=== PATIENT | female | born 1965 | race Caucasian/White ===

== ENCOUNTER 2025-03-02 11:19 | Outpatient (AMB) | payer BC, SELFPAY ==
--- OUTSIDE RECORDS SUMMARY | 2024-10-26 04:00 | XMS_ITS ---
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 [address] [address] 10/26/2024 AMANUEL HERRERA Encounter for gynecological examination [...] Follow Up: 1 Year, Reason: Y early Bit Sharpener Operator Exam Provider Name:AMANUEL Arcos, 04/13/2025 10:30:00 AM, [address] [facility], [address], [place], [address], Progress Notes * ALIX DANGELODOB: [birth year] (59 yo F)Acc No.[id number]:10/26/2024 PROGRESS NOTES Patient: ALIX LEWIS Provider: Christina HERRERA MD :1965 A ge:59 Y S ex:Female Date:10/26/2024 Address:[address] [place], [place] [id number] Pcp:Luan Sargent MD Subjective: * Chief Complaints: * 1 . 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 She has been in state of good health since her last exam. She has the following concerns: none* She was last seen on 10/05/24 for a follow up visit after starting Paroxetine for hot flashes, night sweats, emotional changes. 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 She was feeling well on Paroxetine and [...] of years ago. * ROS: A nnual Bit Sharpener Operator Exam ROS: Bowel habit changes d enies. [...] Denies A nxiety. * Medical History: * Bit Sharpener Operator History: G ravida/ Para . S exual [...] no acute distress, well developed, well nourished, physical therapy coordinator present in room. HEAD: n ormocephalic, atraumatic. [...] * Follow Up: 1 Year (Reason: Yearly Bit Sharpener Operator Exam) * Images: Billing Information: * Visit Code: 06876 Preventive Care Est Pt. Age 40-64. 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 She has been in state of good health since her last exam. She has the following concerns: none* She was last seen on 10/05/24 for a follow up visit after starting Paroxetine for hot flashes, night sweats, emotional changes. 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 She was feeling well on Paroxetine and [...] General Examination GENERAL APPEARANCE: in no ac neo distress, well developed, well nourished, physical therapy coordinator present in room HEAD: normocephalic, atrau matic [...]
--- NOTE | 2025-03-02 11:24 | A.OFFPC_ITS ---
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 Required: No Allergies No Known Allergies Allergy (Verified 03/02/25 11:59) Medication List - Last Reviewed 03/02/25 by Janeth Ellis MA divalproex 250 mg PO DAILY divalproex ER 500 mg PO BEDTIME levothyroxine 125 mcg PO DAILY trazodone 50 mg PO BEDTIME Tobacco use date assessed: 03/02/25 Dental Screening Dental Screen Date: 03/02/25 Did you have a dental visit in the last 12 months?: Yes Did you have a dental problem in the last 6 months where you did not have access to dental care?: No Was dental information given to patient?: Patient has dentist HPI HPI Comments 2 History of Present Illness0 Details 59 y/o F with hypothyroid, prediabetes, OA of hip, diverticulitis, HARRIS, MDD, hepatic steaotisis, gallstones, CAD, Obesity, Hx of abnormal pap s/p cervical bx 2020 , hartmans procedure 10/2024 d/t perf diverticulitis, elective colostomy reversal 01/31/2025, breast reduction, L hand surgery Social: works for [employer] complete Tdap 2019 Mammo 11/2023 WNL - will cont to go to [facility] Pap ASCUS 09/2023 Colon DEXA ordered today to be done @ [facility] Specialists Gen Surg, [facility] Counselor/Prescriber 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 During todays TCM visit, the d/c summary was reviewed, along with the need for or follow-up on pending diagnostic tests and treatments, as necessary interaction with other health menagerie caretaker who will assume or reassume care of the beneficiary?s system-specific problems was done or is being worked on, education was provided to the beneficiary, family, guardian, and/or caregiver, referrals to establish or re-establish and arrange needed community resources we completed, assistance in scheduling required follow-up with community providers and services & finally updated medication list given to patient/caregiver History of Present Illness - The patient is a 59-year-old female pr esenting to [facility] and for a TCM visit Previous PCP: [facility], records rec'd and reviewed. Complications post colostomy reversal. - Recent elective colostomy reversal led to post-operative infection and fever. - Currently has an open surgical incisio n, receiving regular home nursing care. - Healing slower than expected; patient remains out of work to facilitate recovery. Will return 04/16/25 - Experienced extreme pain post-surgery; bowel movement issues managed successfully with stool softeners and Metamucil. - tingling lateral right thigh s/p surge ry - Hypothyroid on levothyoxine w/o sx - Mood disorder - dx w/ bipolar while in rehab for etoh October 2024. Mood stable on current meds. Looking for new counselor and prescriber. Review of Systems - General: Denies fever. - Gastrointestinal: Reports normal bowel movements post-surgery. - Genitourinary: Reports normal urinatio n. Physical Exam General: Well developed, well nourished, in no acute distress. Appears stated age. Head: Normocephalic, atraumatic. Eyes: Pupils are equal, round and reactive to light and accommodation. Conjunctivae are clear. Lungs: Clear to auscultation bilaterally. No rales, rhonchi or wheeze noted. Good air flow in all nicholas. Heart: Regular rate and rhythm. No murmurs, click, rubs or gallops are noted. Abdomen: Bowel sounds present in all quadrants. The abdomen is soft, nontender, with no masses or organomegaly noted. No hernias are noted. Several surgical incisions, 2 dressings clean and dry midline incision, not removed today. Musculoskeletal: Joints are nontender, without swelling, redness, or effusions. Pulses: Peripheral pulses are equal and palpable bilaterally. Extremities: No clubbing, cyanosis nor edema is noted. Psych: Mood and affect appropriate. Discussion Notes I discussed the post-operative complications with the patient, including her current status following the colostomy reversal surgery. We reviewed the care provided by visiting nurses and the importance of wound care management. The continuation of stool softeners and dietary fiber supplements was recommended to maintain bowel movement regularity. We discussed her ongoing recovery from alcohol use disorder; maintaining sobriety is crucial for her overall health. The potential for nerve involvement causing tingling sensation was discussed but did not warrant immediate intervention. I also advised her to use the patient portal for efficient communication with our office and facilitated a referral for psychiatric care coordination to address her mental health needs. Follow-up labs were planned to update her thyroid status as per her routine care protocol. Assessment and Plan 1. Colostomy reversal complications - Ensure regular wound care and defer wo rk return. FU with [facility] Gen Surg. 2. Hypothyroidism - Follow up with thyroid labs evaluation . - cont levothyroxine 3. Bipolar disorder - Plan psychiatric care assistance. - cont divalproex ER 4. Alcohol Use Disorder - Maintain sobriety support. Refer to [facility] for counseling and med prescriber 5. 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 Mammo and Dexa ordered today to be done @ [facility] RTO 3 mo for CPE with labs 1 week before, sooner prn Patient Instructions - Keep your wounds clean and change dres sings as directed by visiting nurses. - Continue using stool softeners and Met amucil to help bowel movements. - Rest and avoid returning to work until April 16. - Use the patient portal for direct comm unication with our office. - Expect a call from our office's naviga tor for mental health support services. - Stay on your prescribed medications an d watch for any changes in symptoms. Consent Patient was informed and verbally consented to the use of an ambient scribe for clinic note documentation during this visit. Total time spent caring for the patient today was 60 minutes. This includes time spent before the visit reviewing the chart, time spent during the visit, and time spent after the visit on documentation, reviewing laboratory results, diagnostic imaging, medications, performing a medically necessary evaluation, counseling on diagnoses, care coordination, ordering appropriate tests, ordering appropriate medications, review of tests performed by other providers, reporting test results with the patient, communication with other healthcare providers. [facility] Medical History (Updated 03/02/25 @ 12:44 by Vilma Lubin, [facility]) Recovering alcoholic Thyroid disorder Surgical History (Updated 03/02/25 @ 11:53 by Janeth Ellis MA) History of colostomy reversal (~01/2025) History of partial surgical removal of colon (~10/2024) Hx of breast reduction, elective (~2001) Family History (Updated 03/02/25 @ 11:54 by Janeth Ellis MA) Father HTN (hypertension) Substance abuse Mother Diabetes Social History (Updated 03/02/25 @ 11:55 by Janeth Ellis MA) Household Members: Spouse Both parents involved: No Caregiver staying overnight: No Housing: House Are you a primary hearing care practitioner to a significant other at home: No Do you presently have visiting nurse or other home services: No 75 years or older and lives alone: No Alcohol intake: never Patient Tobacco Use Status: Never used Tobacco e-Cigarette/Vaping Use: Never Used Second Hand Smoke Exposure: No Current occupational status: employed 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 1. Little interest or pleasure in doing things: not at all 2. Feeling down, depressed, or hopeless: not at all 3. Trouble falling or staying asleep, or sleeping too much: not at all 4. Feeling tired or having little energy: not at all 5. Poor appetite or overeating: not at all 6. Feeling bad about yourself - or that you are a failure or have let yourself or your family down: not at all 7. Trouble concentrating on things, such as reading the newspaper or watching television: not at all 8. Moving or speaking so slowly that other people could have noticed. Or the opposite - being so fidgety or restless that you have been moving around a lot more than usual: not at all 9. Thoughts that you would be better off or of hurting yourself in some way: not at all Total score: 0 Depression Screening Interpretation: Negative Depression Screening Done: Yes 14964 - PHQ-9 Billing: Yes Source: Developed by Drs. Mart Valdes, Betzaida B.Missael Arellano and colleagues, with an educational mirela from [employer]. Thrive Questionnaire Date Thrive assessed: 03/02/25 I am a: Patient What is your living situation today?: I have a steady place to live Within the past 12 months, did the food you bought not last and you didn't have the money to get more?: Never true Within the past 12 months, did you worry whether your food would run out before you got money to buy more?: Never true Do you have trouble paying for medicines?: No Do you have trouble getting transportation to medical appointments?: No Do you have trouble paying your heating and electricity bill?: No Do you have trouble taking care of your child, family member or friend?: No Do you have trouble with day-to-day activities such as bathing, preparing meals, shopping, managing finances, etc.?: No Are you currently unemployed and looking for a job?: No Are you interested in more education?: No Please select the resources that you would like help with: None Currently or been in a relationship where the following occur: No concerns reported THRIVE Score: 0 AUDIT C Alcohol Use Questionnaire (AUDIT-C) 1. How often do you have a drink containing alcohol?: Never 3. How often do you have six or more drinks on one occasion?: Never Total Score: 0 Score Reviewed/Action Taken: Yes HARRIS-7 AMB Questionnaire HARRIS-7 Date HARRIS - 7 assessed: 03/02/25 Feeling nervous, anxious, or on edge: 0 = Not at all Not being able to stop or control worryin = Not at all Worrying too much about different things: 0 = Not at all Trouble relaxin = Not at all Being so restless that it is hard to sit still: 0 = Not at all Becoming easily annoyed or irritable: 0 = Not at all Feeling afraid as if something awful might happen: 0 = Not at all Total HARRIS-7 score (0-4 normal; 5-9 mild; 10-14 moderate; 15-21 severe): 0 Source: Developed by Drs. Mart Valdes, Missael Gonzales and colleagues, with an educational mirela from [employer]. HARRIS-7 Assessment Billing HARRIS-7 Assessment Tool: HARRIS-7 Assessment 18226 Physical exam (Primary Care) Vital Signs: Last Vital Signs Temp 97.1 F 03/02/25 11:32 Pulse 77 03/02/25 11:32 Resp 12 03/02/25 11:32 BP 122/68 03/02/25 11:32 Pulse Ox 99 03/02/25 11:32 Oxygen Delivery Method Room Air 03/02/25 11:32 BMI result Body Mass Index 35.0 BMI Assessment/Plan discussion: High BMI High, discussed plan: lifestyle Tobacco/Smoking Status: Tobacco use Status Tobacco use date assessed 03/02/25 03/02/25 11:29 Patient Tobacco Use Status Never used Tobacco 03/02/25 11:55 e-Cigarette/Vaping Use Never Used 03/02/25 11:55 PHQ-9: PHQ-9 Score PHQ-9: Total score 0 03/02/25 11:29 Depression Screening Interpretation: Negative Thrive Assessment: Date of Thrive Assessment Date Thrive assessed 03/02/25 03/02/25 11:29 Currently or been in a relationship where the following occur: No concerns reported Coding Level of Care Code New Pt Level 5 (23099) Complex EM visit Add On G2211 Diagnoses Encounter to establish care Z76.89 Hospital discharge follow-up Z09 Obesity (BMI 30-39.9) E66.9 Alcohol abuse F10.10 Bipolar disorder in full remission, most recent episode unspecified type F31.70 Active/Remission status: in full remission Most recent bipolar episode type: unspecified type Acquired hypothyroidism E03.9 Hypothyroidism type: acquired ROY (nonalcoholic steatohepatitis) K75.81 ASCUS of cervix with negative high risk HPV R87.610 Menopause Z78.0 Diverticulitis of colon with perforation K57.20 Additional Codes HARRIS-7 Assessment Billing - HARRIS-7 Assessment Tool: HARRIS-7 Assessment 27222 ([id number]) PHQ-9 - 57555 - PHQ-9 Billing: Yes ([id number]) Assessment & Plan Assessment & Plan (1) Encounter to establish care: Code(s): Z76.89 - Persons encountering health services in other specified circumstances (2) Hospital discharge follow-up: Code(s): Z09 - Encounter for follow-up examination after completed treatment for conditions other than malignant neoplasm (3) Obesity (BMI 30-39.9): Code(s): E66.9 - Obesity, unspecified Category: Medical (4) Alcohol abuse: Comment: in early remission, 10/2024 hx of Section 12 Code(s): F10.10 - Alcohol abuse, uncomplicated Category: Social Hx (5) Bipolar disorder: Code(s): F31.9 - Bipolar disorder, unspecified Category: Medical Qualifiers: Active/Remission status: in full remission Most recent bipolar episode type: unspecified type Qualified Code(s): F31.70 - Bipolar disorder, currently in remission, most recent episode unspecified (6) Hypothyroid: Code(s): E03.9 - Hypothyroidism, unspecified Category: Medical Qualifiers: Hypothyroidism type: acquired Qualified Code(s): E03.9 - Hypothyroidism, unspecified (7) ROY (nonalcoholic steatohepatitis): Code(s): K75.81 - Nonalcoholic steatohepatitis (ROY) Category: Medical (8) ASCUS of cervix with negative high risk HPV: Onset Date: ~09/2023 Comment: managed by [facility] Code(s): R87.610 - Atypical squamous cells of undetermined significance on cytologic smear of cervix (ASC-US) Category: Medical (9) Menopause: Code(s): Z78.0 - Asymptomatic menopausal state Category: Medical (10) Diverticulitis of colon with perforation: Code(s): K57.20 - Diverticulitis of large intestine with perforation and abscess without bleeding Category: Medical Plan . Orders: Orders 2 MM tomosynthesis screening BI Today Z12.31 - Encounter for screening mammogram for malignant neoplasm of breast, Z78.0 - Asymptomatic menopausal state Complete Blood Count no Diff Today E03.9 - Hypothyroidism, unspecified, K75.81 - Nonalcoholic steatohepatitis (ROY), Z00.00 - Encounter for general adult medical examination without abnormal findings IRON PROFILE Today E03.9 - Hypothyroidism, unspecified, K75.81 - Nonalcoholic steatohepatitis (ROY), Z00.00 - Encounter for general adult medical examination without abnormal findings Lipid Panel Today E03.9 - Hypothyroidism, unspecified, K75.81 - Nonalcoholic steatohepatitis (ROY), Z00.00 - Encounter for general adult medical examination without abnormal findings TSH reflex Free T4 Today E03.9 - Hypothyroidism, unspecified, K75.81 - Nonalcoholic steatohepatitis (ROY), Z00.00 - Encounter for general adult medical examination without abnormal findings Vitamin B12 and Folate Today E03.9 - Hypothyroidism, unspecified, K75.81 - Nonalcoholic steatohepatitis (ROY), Z00.00 - Encounter for general adult medical examination without abnormal findings Vitamin D 25-OH Total Today E03.9 - Hypothyroidism, unspecified, K75.81 - Nonalcoholic steatohepatitis (ROY), Z00.00 - Encounter for general adult medical examination without abnormal findings XR DEXA axial skeleton Today Z13.820 - Encounter for screening for osteoporosis, Z78.0 - Asymptomatic menopausal state Comprehensive Met. Panel Today E03.9 - Hypothyroidism, unspecified, K75.81 - Nonalcoholic steatohepatitis (ROY), Z00.00 - Encounter for general adult medical examination without abnormal findings Ferritin Today E03.9 - Hypothyroidism, unspecified, K75.81 - Nonalcoholic steatohepatitis (ROY), Z00.00 - Encounter for general adult medical examination without abnormal findings Hemoglobin A1c Today E03.9 - Hypothyroidism, unspecified, K75.81 - Nonalcoholic steatohepatitis (ROY), Z00.00 - Encounter for general adult medical examination without abnormal findings Microalbumin, Random (w Creat) Today E03.9 - Hypothyroidism, unspecified, K75.81 - Nonalcoholic steatohepatitis (ROY), Z00.00 - Encounter for general adult medical examination without abnormal findings Referrals 2 Nurse Navigator Referral F10.10 - Alcohol abuse, uncomplicated, F31.9 - Bipolar disorder, unspecified Patient Instructions: Walk-In Care (Urgent Care): We Make it Easy Walk-in for urgent medical issues such as: ? Seasonal Allergies ? Insect Bites ? Cough ? Diarrhea ? Acute Asthma Attacks ? Back, Knee or Joint Pain ? Ear Infection ? Fever without a Rash ? Headaches ? Nausea ? Damon Eye, Rash or Skin Irritation ? Sore Throat ? Sports Physicals ? Vomiting Most insurances are accepted. Patients do not need to be part of the [facility] to seek care at the walk-in clinic. Locations [facility] [address], [place] [address] ? [phone] [facility] in [place] provides services to ages 18 and over. Open Wednesday-Wednesday: 8 a.m. to 5 p.m. and Wednesday: 9 a.m. to 3 p.m.* *Hours may vary due to staffing availability. To confirm Walk-In Care hours in [place], please call [phone]. [address] [place] [address] ? [phone] [facility] Walk-In Care in [place] provides services to ages 12 and over. Open Wednesday-Wednesday: 8 a.m. to 5 p.m. Hours may vary due to staffing availability. To confirm Walk-In Care hours in [place], please call [phone]. LABORATORY SERVICES: [facility] Lab ? Primary Location [address] [place] [address] Wednesday through Wednesday 6:00 AM ? 5:00 PM Wednesday 7:00 AM ? 11:00 AM* [phone] The [facility] Lab is centrally located near the front entrance of the [facility] for easy outpatient access. Convenient parking is provided for outpatients. *Hours may vary due to staffing availability. To confirm Laboratory hours for any location, please call [phone]. Offsite Location For your convenience, we offer offsite laboratory draw stations at the following locations: [address] [place] [address] ? [address], [address] Wednesday through Wednesday 7:30 AM ? 1:00 PM* [phone] *Hours may vary due to staffing availability. To confirm Laboratory hours for any location, please call [phone]. [place] ? [address] Wednesday through Wednesday 6:00 AM ? 3:30 PM* Wednesday 6:30 AM ? 3 PM* [phone] *Hours may vary due to staffing availability. To confirm Laboratory hours for any location, please call [phone] [place] [address] Wednesday through Wednesday 7:30 AM ? 4:00 PM* [phone] *Hours may vary due to staffing availability. To confirm Laboratory hours for any location, please call [phone] [place] [address] Wednesday through 9:00 AM ? 4:00 PM* *Hours may vary due to staffing availability. To confirm Laboratory hours for any location, please call [phone]. Appointments are not necessary. Walk-ins are welcome. Like all the departments throughout the [facility], our Lab undergoes frequent reviews to ensure the quality and accuracy of test results, and our staff takes special pride in its status as a nationally accredited facility. Patient Portal: ONE PATIENT. ONE RECORD. BETTER CARE. [facility] has a fully integrated, cutting- edge mobile electronic health information system that has revolutionized the way we care for our patients and manage our organization. This system improves communication and coordination enabling us to provide safe, higher-quality care, and an overall positive experience for staff and patients. Our first priority, as always, is to deliver the highest quality care possible. The system is running in the background supporting that priority. This portal is for all [facility] and [facility] services and practices. If you are experiencing any technical difficulties with enrolling or logging into the Patient Portal please complete the [facility] Patient Portal Technical Support Form. [facility] now offers a new secure on-line interactive tool for patients to review their health information ? ?Patient Portal. This interactive web portal will enable patients and their families to take an active role in their care by providing easy, secure access to their health information via the internet. The Patient Portal provides patients with instant access to their health information, including laboratory results, medications, allergies, demographic information, visit history, and more. In addition to managing their own care, parents and health care proxies with authorized consent will appreciate the ability to access the records of those individuals for whom they provide care. Please note: if you wish to gain access (Proxy) to another patient?s portal, you will be required to come to the Medical Records Department in person at [facility]. Both the patient giving proxy access and the proxy will need to provide photo identification and complete the appropriate authorization. The Patient Portal also allows track their appointments online. The [facility] Patient Portal also saves patients time by allowing them to submit updates to their demographic and contact information prior to their visits. Portal email notifications will also alert patients to any new activity on their portal, such as test results and new appointments. In order to initially enroll in the [facility] Patient Portal, you will need to enter some required information including the following: * your [facility] Medical Record number * your personal home email address * name * date of Please note: In order to enroll in the [facility] Patient Portal, we need to have your email address on file in your electronic medical record. ?The email address needs to be specific for one person (yourself) in order for your Portal enrollment to be successful. ?You can update your email address in person with our Registration staff when you are registering for a hospital visit. ?Otherwise, you will need to come to the Health Information Management (Medical Records) Department at [facility]. ?We are open from Wednesday ? Wednesday from 7:30 a.m. ? 4:30 p.m. ?You will be required to present a photo id. Once you have successfully enrolled in the Patient Portal, you will receive a one-time user id and password for the Portal, sent to your email address. ?This will allow you to log into the Patient Portal within 99 hrs and reset your own logon id and password, and define personal security questions. ?Once your permanent login and password have been set, you can log into the [facility] Patient Portal at any time via the blue button above or from the Portal Logon button on any page of the [facility] website. [facility] and [facility] encourage all of our patients to enroll in Patient Portal as it presents a valuable opportunity for patients and their families to actively participate in their care and stay healthy Welcome to [facility]. ?We look forward to working with you.
[2025-03-02 11:32] VITALS: BP 122/68; PULSE 77; RESP 12; TEMP 36.2; O2SAT 99; BMI 35.0
--- OUTSIDE RECORDS SUMMARY | 2025-03-02 11:52 | XMS_ITS | Referral Summary ---
Author Organization [facility] Address [address] [place] [address] Care Team Providers Care Anode Machine Operator Name Role Phone Luan Sargent Jacklyn Primary Care Provider [phone] Encounters Date Type Department Care Team Description 11/28/2024 2:54 PM EDT - 12/08/2024 1:34 PM EDT Hospital Encounter [facility] [address] [place] [address] Matthew Kwon MD Discharge Disposition: Home or Self Care () from Last 3 Months Allergies No known active allergies Medications levothyroxine (SYNTHROID, LEVOTHROID) 125 mcg tablet Take 1 tablet (125 mcg total) by mouth daily. 30 tablet 5 Active divalproex ER (DEPAKOTE ER) 500 mg tablet Take 1 tablet (500 mg total) by mouth every night. 30 tablet [address] (DEPAKOTE) 250 mg EC tablet Take 1 tablet (250 mg total) by mouth once a day. 30 tablet 5 Active hydrOXYzine HCL (ATARAX) 25 mg tablet Take 1 tablet (25 mg total) by mouth 2 times a day as needed for anxiety (or sleep). 60 tablet 5 Active LORazepam (ATIVAN) 1 mg tablet Take 1 tablet (1 mg total) by mouth 3 times a day. Do not stop abruptly; consult outpatient provider for taper instructions before stopping 42 tablet 1 5 Active traZODone (DESYREL) 50 mg tablet Take 1 tablet (50 mg total) by mouth nightly. 30 tablet 5 Active Active Problems Problem Noted Date Diagnosed Date Thyroid dysfunction 11/29/2024 Assessment & Plan (11/30/2024 1:37 PM EDT): Known history of hypothyroid which has been treated with Levothyroxine 200mcg daily. While at [facility], endocrinology was consulted and the Levothyroxine was held for 3 days due to concern for iatrogenic hyperthyroid. After the 3 days, they recommended restarting Levothyroxine at 150mg daily with monitoring of labs in 4-6 weeks. Repeat TSH remained low; medical diagnostic radiographer recommended further decrease of Levothyroxine to 125mcg with a repeat TSH in 3 weeks. -Stop Levothyroxine 150mcg daily -Start Levothyroxine 125mcg daily -Repeat TSH in 3 weeks Diverticulitis 11/29/2024 Assessment & Plan (12/01/2024 10:08 AM EDT): Known history of diverticulitis; S/P suni procedure on 11/15/24. Ginny intact with instructions to have removed around 12/07/24. Some redness around the incision site. Medical consult ordered on admission. Ostomy teaching was done at [facility]; patient reports ability to change the bag independently but given the extent of manic symptoms may need assistance. -Medical Consult to evaluate incision site and ostomy -11/29/24 Doxycycline 100mg BID x7 days restarted -11/29/24 Flagyl 500mg Q8hr x7 days restarted -Monitor incision site 3 times a day by nursing staff -Staple Removal scheduled on 12/07 @ 1:20pm with Dr. Morejon ([phone]); -After pictures were sent to the surgeon on 11/30 the new instructions were to remove ginny on 12/01 and replace with steri strips (medical diagnostic radiographer will remove) -Check CBC, CMP, CRP, ESR Bipolar disorder 11/28/2024 Assessment & Plan (12/04/2024 1:08 PM EDT): Psychiatric Assessment/Plan Patient presents with manic symptoms as evidence by decreased need for sleep, increased energy, tangential/racing thought process, pressured speech, increased purposeless non-goal directed activity, labile mood, and mild paranoia/distrust. Patient also expressed suicidal ideation with multiple plans. On admission, she reports that she does not want to and cites multiple protective factors. However, due to the severity of her symptoms remains at risk for unintentional harm to herself or others. Regarding medications, will stop Paxil due to jerry. Start Zyprexa 10mg HS, Ativan 1mg HS, and Trazodone 50mg HS with the goal of stabilizing sleep and jerry. Plan -Admit to the CDU on a conditional voluntary status; signed 3 day notice which expires on 12/01/24 -Monitor safety on 1:1; reduced to Q5 on 11/30 -Zyprexa 2.5mg BID at 0900 & 1300; increased to 5mg BID on 12/01 -Zyprexa 10mg HS; increased to 15mg HS on 12/04 -Start Depakote ER 250mg AM and 500mg HS on 12/04 -Trazodone 50mg HS -Ativan 1mg HS; changed to 3 times a day on 12/01 -Benadryl 50mg HS added 12/01 -Encourage engagement in milieu activities -Offer prns for sleep, anxiety, pain, fever, & GI distress as appropriate -Disposition planning per social work recommendations Resolved Problems Problem Noted Date Diagnosed Date Resolved Date Mouth sores 11/29/2024 12/08/2024 Assessment & Plan (11/30/2024 8:57 AM EDT): Subjective report of multiple sores in her mouth which is interfering with her ability to eat. Patient was given a 1x dose of lidocaine viscous before lunch and will be seen by the medical diagnostic radiographer later today. -11/29 started on Triamcinolone dental paste 0.1% 3 times a day x 5 days -Daily swish with antibacterial mouth wash Social History Tobacco Use Types Packs/Day Years Used Date Smoking Tobacco: Former Cigarettes Smokeless Tobacco: Never Tobacco Cessation:Counseling Given: No Comments:Quit at age 42 Alcohol Use Standard Drinks/Week Comments Not Currently 8 (1 standard drink = 0.6 oz pure alcohol) Patient self endorses being an alcoholic. Reports excessive drinking over the past 3 years. Last drink was mid October 2024. Comments No Sex and Gender Information Value Date Recorded Sex Assigned at Female 11/29/2024 8:47 AM EDT Legal Sex Female 4:00 AM EDT Gender Identity Not on file Sexual Orientation Not on file Last Filed Vital Signs Vital Sign Reading Time Taken Comments Blood Pressure 126/86 12/08/2024 8:18 AM EDT Pulse 92 12/08/2024 8:18 AM EDT Temperature 36.8 C (98.3 F) 12/08/2024 8:18 AM EDT Respiratory Rate 16 12/08/2024 8:18 AM EDT Oxygen Saturation 97% 12/08/2024 8:18 AM EDT Inhaled Oxygen Concentration - - Weight 86.2 kg (190 lb) 11/28/2024 3:00 PM EDT Height 177 cm (5' 9.69 ) 11/28/2024 3:00 PM EDT Body Mass Index 27.51 11/28/2024 3:00 PM EDT Plan of Treatment Not on file Procedures * Due to [employer] law, this organization might not be sharing negative HIV tests. Procedure Name Priority Date/Time Associated Diagnosis Comments POCT GLUCOSE Routine 12/08/2024 7:45 AM EDT BASIC METABOLIC PANEL Routine 12/08/2024 6:45 AM EDT VALPROIC ACID LEVEL, TOTAL Routine 12/08/2024 6:45 AM EDT TSH Routine 12/08/2024 6:45 AM EDT POCT GLUCOSE Routine 12/07/2024 3:55 PM EDT POCT GLUCOSE Routine 12/07/2024 12:32 PM EDT from Last 3 Months Results * Due to [employer] law, this organization might not be sharing negative HIV tests. * (ABNORMAL) POCT Glucose, interfaced (12/08/2024 7:45 AM EDT) Only the most recent of3 resultswithin the time period is included. Glucose, POCT 127(H) 70 - 99 mg/dL 12/08/2024 7:45 AM EDT [facility] Comment: The tearoom host has not determined the efficacy of this test in Critically ill patients. [facility] defines Critically ill patients for the purpose of blood glucose monitoring (BGM) by glucometer, as patients meeting one or more of the following criteria: Hypotension- non-ICU patients (systolic blood pressure Less than 90 mmHg) due to shock Hypotension -ICU patients (Mean Arterial Pressure (MAP) <60 mmHg or systolic blood pressure < 90 mmHg due to shock Patients receiving Vasopressors (phenylephrine, vasopressin or norepinephrine) Anasarca In all locations, BGM test results should not be relied upon in the above situations, unless these results confirmed with lab-based glucose values. Blood 12/08/2024 7:45 AM EDT 12/08/2024 7:45 AM EDT us Matthew Kwon MD LAB POCT ORDERABLES - DEVICE F inal Result Performing Organization Address City/[facility]/ZIP Co de Phone Number [facility] [address] [place] [address], [place] [phone] * (ABNORMAL) TSH (12/08/2024 6:45 AM EDT) TSH 0.026(L) 0.270 - 4.200 uIU/mL 12/08/2024 7:34 AM EDT [facility] Comment: Females: 1st trimester 0.150-4.000 IU/mL 2nd trimester 0.310-4.170 IU/mL 3rd trimester 0.380-4.150 IU/mL Blood Structure of peripheral vein / Unknown Venipuncture / Unknown 12/08/2024 6:45 AM EDT 12/08/2024 6:48 AM EDT us Tabitha Lundy NP LAB BLOOD ORDERABLES Final Re sult Performing Organization Address [facility]/ZIP Co de Phone Number [facility] [address] [place] [address], [place] [phone] * (ABNORMAL) Valproic Acid Level, Total (12/08/2024 6:45 AM EDT) [facility] Valproic Acid, Total 35(L) 50 - 100 ug/mL 12/08/2024 10:42 AM EDT [facility] Blood Structure of peripheral vein / Unknown Venipuncture / Unknown 12/08/2024 6:45 AM EDT 12/08/2024 6:48 AM EDT us Tabitha Lundy NP LAB BLOOD ORDERABLES Final Re sult [facility] [address] [facility] [address] [place] [address], [place] [phone] * (ABNORMAL) Basic metabolic panel (12/08/2024 6:45 AM EDT) [facility] NA 138 136 - 145 mmol/L 12/08/2024 7:17 AM EDT [facility] K 4.2 3.5 - 5.1 mmol/L 12/08/2024 7:17 AM EDT [facility] Cl 100 98 - 109 mmol/L 12/08/2024 7:17 AM EDT [facility] CO2 28 22 - 32 mmol/L 12/08/2024 7:17 AM EDT [facility] BUN 8 6 - 20 mg/dL 12/08/2024 7:17 AM EDT [facility] Creatinine 0.41(L) 0.50 - 1.12 mg/dL 12/08/2024 7:17 AM EDT [facility] Glucose 114(H) 60 - 99 mg/dL 12/08/2024 7:17 AM EDT [facility] Calcium 8.8 8.4 - 10.4 mg/dL 12/08/2024 7:17 AM EDT [facility] Anion Gap 14 >=0 12/08/2024 7:17 AM EDT [facility] eGFR >90 >=60 mL/min/1. 73m2 12/08/2024 7:17 AM EDT [facility] Comment:The estimated glomer ular filtration rate (eGFR) is calculated using a new formula developed by the NKF-ASN task force to eliminate race-based correction factors. The new formula uses serum/plasma creatinine, age, and gender to determine eGFR. A value below 60mls/min might indicate kidney disease and will be flagged. For additional information, see Whitaker et al, Am J Kidney Dis. 2021;79(2):268- 288, A Unifying Approach for GFR estimation: Recommendations of the NKF-ASN Task Force on Reassessing the Inclusion of Race in Diagnosing Kidney Disease . Blood Structure of peripheral vein / Unknown Venipuncture / Unknown 12/08/2024 6:45 AM EDT 12/08/2024 6:48 AM EDT us Tabitha Lundy NP LAB BLOOD ORDERABLES Final Re sult [facility] [address] [place] [address], from Last 3 Months Insurance [facility] HMO/POS Advance Directives * Full Code (Latest Code Status on File) Date Activated Date Inactivated Comments 11/28/2024 3:32 PM 12/08/2024 3:51 PM Care Teams Anode Machine Operator Relationship Specialty Start Date End Date Luan Sargent [address] [place] [address] PCP - General Internal Medicine 12/01/24
== END 2025-03-02 12:28 | disposition home or self-care (01) ==
PROVIDERS: PCP Nurse Practitioner Family; Visit Provider Nurse Practitioner Family
DX: E03.9 Hypothyroidism, unspecified (principal); Z09 Encounter for follow-up examination after completed treatment for conditions other than malignant neoplasm; E66.9 Obesity, unspecified; Z68.35 Body mass index [BMI] 35.0-35.9, adult; F10.10 Alcohol abuse, uncomplicated; F31.70 Bipolar disorder, currently in remission, most recent episode unspecified; K75.81 Nonalcoholic steatohepatitis (NASH); R87.610 Atypical squamous cells of undetermined significance on cytologic smear of cervix (ASC-US); Z78.0 Asymptomatic menopausal state; K57.20 Diverticulitis of large intestine with perforation and abscess without bleeding

== ENCOUNTER → 2025-03-02 11:19 | Outpatient (BNVA) | payer BC, SELFPAY | PROVIDERS: PCP Nurse Practitioner Family; Visit Provider Nurse Practitioner Family | DX: M16.11 Unilateral primary osteoarthritis, right hip (principal); F41.1 Generalized anxiety disorder; I25.10 Atherosclerotic heart disease of native coronary artery without angina pectoris; E66.9 Obesity, unspecified; E03.9 Hypothyroidism, unspecified; F31.9 Bipolar disorder, unspecified; F10.10 Alcohol abuse, uncomplicated; F31.70 Bipolar disorder, currently in remission, most recent episode unspecified; K75.81 Nonalcoholic steatohepatitis (NASH); R87.610 Atypical squamous cells of undetermined significance on cytologic smear of cervix (ASC-US); Z09 Encounter for follow-up examination after completed treatment for conditions other than malignant neoplasm; Z78.0 Asymptomatic menopausal state; Z76.89 Persons encountering health services in other specified circumstances; Z87.19 Personal history of other diseases of the digestive system; Z68.35 Body mass index [BMI] 35.0-35.9, adult | CPT/HCPCS: 96127 ==

== ENCOUNTER 2025-08-02 14:46 | Outpatient (AMB) | payer BC, SELFPAY ==
--- OUTSIDE RECORDS SUMMARY | 2024-10-26 03:00 | XMS_ITS ---
Author Organization [facility] Address [address] [address] Care Team Providers Care Water Control Supervisor Name Role Phone SHILPI BRIAN N.P. 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 Physical Medications Medication SIG (Take, Route, Frequency, Duration) Notes Start Date End Date Status PARoxetine HCl 20 MG 1 tablet in the mor izzy Orally Once a day; Duration: 90 days 08/03/2024 Active Levothyroxine Sodium 175 MCG 1 tablet in the morning on an empty stomach Orally Once a day Unknown Encounters Encounter Location Date Provider Diagnosis [facility] [employer] [address] [address] 10/26/2024 AMANUEL HERRERA Encounter for gynecological examination (general) (routine) without abnormal findings Z01.419 ; Encounter for screening mammogram for malignant neoplasm of breast Z12.31 ; Encounter for screening for infections with a predominantly sexual mode of transmission Z11.3 and Menopausal and female climacteric states N95.1 Assessments Encounter Date Diagnosis (ICD Code) Assessment Notes Treatment Notes Treatment Clinical Notes Section Notes 10/26/2024 Encounter for gynecological examination (general) (routine) without abnormal findings (ICD-10 - Z01.419) During the visit, the following areas of concern were addressed: Discussed cervical cancer screening with either cytology alone every 3 years or high risk HPV co-testing every 5 years as per ASCCP guidelines. Advised continued annual pelvic exams. Patient encouraged to increase her level of exercise. SBE technique encouraged/tau ght. Patient reminded when annual mammogram is due. Patient encouraged to keep colon screening up to date. 10/26/2024 Encounter for screening mammogram for malignant neoplasm of breast (ICD-10 - Z12.31) 10/26/2024 Encounter for screening for infections with a predominantly sexual mode of transmission (ICD-10 - Z11.3) 10/26/2024 Menopausal and female climacteric states (ICD-10 - N95.1) Plan Of Treatment Medication Medication Name Sig Start Date Stop Date Notes PARoxetine HCl 20 MG 1 tablet in the mor izzy Orally Once a day; Duration: 90 days 08/03/2024 Treatment Notes Assessment Notes Encounter for gynecological examination (general) (routine) without abnormal findings During the visit, the following areas of concern were addressed: Discussed cervical cancer screening with either cytology alone every 3 years or high risk HPV co-testing every 5 years as per ASCCP guidelines. Advised continued annual pelvic exams. Patient encouraged to increase her level of exercise. SBE technique encouraged/taught. Patient reminded when annual mammogram is due. Patient encouraged to keep colon screening up to date. Pending Test Test Name Order Date MM Digital Screening Mammogram 3D 2024 Next Appt Details Follow Up: 1 Year, Reason: Y early Manufacturing Engineer Assembly Exam Provider Name:AMANUEL Arcos, 06/20/2026 08:40:00 AM, [address], [address], [place], [address], Progress Notes * ALIX DANGELODOB: [birth year] (60 yo F)Acc No.[id number]:10/26/2024 PROGRESS NOTES Patient: ALIX LEWIS Provider: Christina HERRERA MD :1965 A ge:59 Y S ex:Female Date:10/26/2024 Address:[address] [place], [place] [id number] Pcp:SHILPI BRIAN N.P. Subjective: * Chief Complaints: * 1 . 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 She has been in state of good health since her last exam. She has the following concerns: none* She was last seen on 10/05/24 for a follow up visit after starting Paroxetine for hot flashes, night sweats, emotional changes. 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 She was feeling well on Paroxetine and we continued the same dose. She has received the Moderna Covid-19 vaccine. Relationship status: * for 34 years. She is sexually active. Sexual partner(s): male. She does not wish to have STI testing. She does *not report vaginal dryness. She does have hot flashes/night sweats - tolerable. The patient has had an abnormal pap smear within the last 5 years. Her most recent pap smear was 10/21/23 - ASCUS, Neg HR HPV. Previous pap was 10/16/22 - NIL, neg HR HPV, and before that, 1 - ASC-H, HR HPV Neg. Colposcopically-directed biopsies showed chronic cervicitis, and ECC was negative. Due for pap today. She has not been diagnosed with breast cancer. She does *not have a family history of breast cancer. Her last mammogram was 11/23/23. She does *not have a family history of colon cancer. She a has had a colonoscopy. The last colonoscopy was in 2018. The patient does *not exercise. She reports that she has had a hard time since the of her mother a couple of years ago. * ROS: A nnual Manufacturing Engineer Assembly Exam ROS: Bowel habit changes d enies. B ladder symptoms d enies. V aginal discharge, unusual d enies. V aginal itch or odor d enies. w eight or appetite changes d enies. C hest pains, SOB d enies. d epression d enies.? B reast: Denies B reast lump. D enies N ipple discharge.? H ematology: Denies S wollen glands. S kin: Patient denies c hanging moles. P sychiatric: Denies A nxiety. * Medical History: * Manufacturing Engineer Assembly History: G ravida/ Para . S exual activity c urrently sexually active, with men. L ast Pap Smear: ASCUS, NEG HRHPV, 10/16/22 NIL, NEG HPV, 06/03/21 ASC-H HRHPV NEG, 08/05/16 - NIL, neg HR HPV. M ammogram: < 50% density, 11/06/22 < 50% density, 04/12/2021 < 50% density, birads-1, 10/22/17 < 50% density, birads-1. A bnormal Pap Smear: 1 - colpo - chronic cervicitis, Neg ECC;06/03/21 - pap - ASC-H HRHPV NEG. L MP and menses M supa 01/24/2021. B irth Control: v asectomy. M enarche 1 5. C olonoscopy 2 018. * OB History: T otal pregnancies 6 . T otal living children 3 . N VD 3 . M iscarriage(s) 3 . P regnancy # 1: n ormal spontaneous vaginal delivery (), 08/20/92, [place], 6lb, no complications. P regnancy # 2: s pontaneous , no dxc needed. P regnancy # 3 n ormal spontaneous vaginal delivery (), 07/14/95, [place], 7lb 11oz, no complications. P regnancy # 4: n ormal spontaneous vaginal delivery (), 02/07/99, [place], 7lb 10oz, no complications. P regnancy # 5: s pontaneous , no surgery needed. P regnancy # 6 s pontaneous , no surgery needed. * Surgical History: B reast Reduction , Tummy Tuck , Hand -- Arthritis, carpal tunnel . * Hospitalization/Major Diagno stic Procedure: Ranjeet franz , See Surgical Hx , Diverticulitis 12/2022. * Medications: U nknown Levothyroxine Sodium 175 MCG Tablet 1 tablet in the morning on an empty stomach Orally Once a day , Unknown PARoxetine HCl 20 MG Tablet 1 tablet in the morning Orally Once a day Objective: * Vitals: * Examination: G eneral Examination: GENERAL APPEARANCE: i n no acute distress, well developed, well nourished, well logging operator mud analysis present in room. HEAD: n ormocephalic, atraumatic. NECK/THYROID: n khang supple, full range of motion, thyroid normal. LYMPH NODES: n o axillary or supraclavicular adenopathy.? SKIN: normal, good turgor, no rashes, no suspicious lesions. BREASTS: normal, no dimpling, no discharge, no drainage, no masses palpable bilaterally, nontender, reduction mammoplasty scars present. ABDOMEN: soft, non-tender, non distended without masses or hepatosplenomegay. RECTAL: normal tone, no masses palpable. BACK: no costovertebral angle tenderness. FEMALE GENITOURINARY: V ulva without lesions or masses, vagina pink without abnormal discharge, lesions or masses, cervix appears normal and is not tender to palpation, uterus is normal size, mobile, nontender and anteverted, ovaries are not palpable. NEUROLOGIC: alert and oriented, gait normal. PSYCH: alert, oriented, cognitive function intact, cooperative with exam, good eye contact, mood/affect full range, speech clear. Assessment: * Assessment: 1. E ncounter for gynecological examination (general) (routine) without abnormal findings - Z01.419 (Primary) 2 . E ncounter for screening mammogram for malignant neoplasm of breast - Z12.31 3 . E ncounter for screening for infections with a predominantly sexual mode of transmission - Z11.3 4 . M enopausal and female climacteric states - N95.1 Plan: * Treatment: 2. E ncounter for screening mammogram for malignant neoplasm of breast I maging: MM Digital Screening Mammogram 3D 3. M enopausal and female climacteric states Refill PARoxetine HCl Tablet, 20 MG, 1 tablet in the morning, Orally, Once a day, 90 days, 90 Tablet, Refills 4. * Follow Up: 1 Year (Reason: Yearly Manufacturing Engineer Assembly Exam) * Images: Billing Information: * Visit Code: 83492 Preventive Care Est Pt. Age 40-64. 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 She has been in state of good health since her last exam. She has the following concerns: none* She was last seen on 10/05/24 for a follow up visit after starting Paroxetine for hot flashes, night sweats, emotional changes. 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 She was feeling well on Paroxetine and we continued the same dose. She has received the Moderna Covid-19 vaccine. Relationship status: * for 34 years. She is sexually active. Sexual partner(s): male. She does not wish to have STI testing. She does *not report vaginal dryness. She does have hot flashes/night sweats - tolerable. The patient has had an abnormal pap smear within the last 5 years. Her most recent pap smear was 10/21/23 - ASCUS, Neg HR HPV. Previous pap was 10/16/22 - NIL, neg HR HPV, and before that, 06/03/21 - ASC-H, HR HPV Neg. Colposcopically-directed biopsies showed chronic cervicitis, and ECC was negative. Due for pap today. She has not been diagnosed with breast cancer. She does *not have a family history of breast cancer. Her last mammogram was 11/23/23. She does *not have a family history of colon cancer. She a has had a colonoscopy. The last colonoscopy was in 2018. The patient does *not exercise. She reports that she has had a hard time since the of her mother a couple of years ago. Examination Category Sub-Category Detail Notes Category Not es General Examination GENERAL APPEARANCE: in no ac tulalip distress, well developed, well nourished, well logging operator mud analysis present in room HEAD: normocephalic, atrau matic NECK/THYROID: neck supple, full ra nge of motion, thyroid normal ABDOMEN: soft, non-tender, no n distended without masses or hepatosplenomegay NEUROLOGIC: alert and oriented, gait normal SKIN: normal, good turgor, no rashes, no suspicious lesions BACK: no costovertebral an gle tenderness BREASTS: normal, no dimpling, no discharge, no drainage, no masses palpable bilaterally, nontender, reduction mammoplasty scars present LYMPH NODES: no axillary or supra clavicular adenopathy RECTAL: normal tone, no mass es palpable PSYCH: alert, oriented, cog nitive function intact, cooperative with exam, good eye contact, mood/affect full range, speech clear FEMALE GENITOURINARY: Vulva without lesi ons or masses, vagina pink without abnormal discharge, lesions or masses, cervix appears normal and is not tender to palpation, uterus is normal size, mobile, nontender and anteverted, ovaries are not palpable
--- OUTSIDE RECORDS SUMMARY | 2024-11-15 03:00 | XMS_ITS ---
Author Organization [facility] Address [address] [address] Care Team Providers Care College Physics Instructor Name Role Phone SHILPI BRIAN N.P. 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 Physical Encounters Encounter Location Date Provider Diagnosis [facility] [employer] [address] [address] 11/15/2024 AMANUEL HERRERA Encounter for gynecological examination (general) (routine) without abnormal findings Z01.419 ; Encounter for screening mammogram for malignant neoplasm of breast Z12.31 and Encounter for screening for infections with a predominantly sexual mode of transmission Z11.3 Assessments Encounter Date Diagnosis (ICD Code) Assessment Notes Treatment Notes Treatment Clinical Notes Section Notes 11/15/2024 Encounter for gynecological examination (general) (routine) without [...] to keep colon screening up to date. 11/15/2024 Encounter for screening mammogram for malignant neoplasm of breast (ICD-10 - Z12.31) 11/15/2024 Encounter for screening for infections with a predominantly sexual mode of transmission (ICD-10 - Z11.3) Plan Of Treatment Treatment Notes Assessment Notes Encounter for gynecological [...] Follow Up: 1 Year, Reason: Y early Senior Foreman Exam Provider Name:AMANUEL Arcos, 06/20/2026 08:40:00 AM, [address], [address], [place], [address], Progress Notes * ALIX DANGELODOB: [birth year] (60 yo F)Acc No.[id number]:11/15/2024 PROGRESS NOTES Patient: ALIX LEWIS Provider: Christina HERRERA MD :1965 A ge:59 Y S ex:Female Date:11/15/2024 Address:[address] [place], [place] [id number] Pcp:SHILPI BRIAN N.P. Subjective: * Chief Complaints: * 1 . 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 She has been in state of good health since her last exam. She has the following concerns: none* She was last seen on 10/05/24 for a follow up visit after starting Paroxetine for hot flashes, night sweats, emotional changes. 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 She was feeling well on Paroxetine and [...] of years ago. * ROS: A nnual Senior Foreman Exam ROS: Bowel habit changes d enies. [...] sychiatric: Denies A nxiety. * Medical History: Objective: * Vitals: * Examination: G eneral Examination: GENERAL APPEARANCE: i n no acute distress, well developed, well nourished, parts washer present in room. HEAD: n ormocephalic, atraumatic. NECK/THYROID: n khang supple, full range of motion, thyroid normal. LYMPH NODES: n o axillary or supraclavicular adenopathy.? SKIN: normal, good turgor, no rashes, no suspicious lesions. BREASTS: normal, no dimpling, no discharge, no drainage, no masses palpable bilaterally, nontender. ABDOMEN: soft, non-tender, non distended without masses [...] predominantly sexual mode of transmission - Z11.3 Plan: * Treatment: 2. E ncounter for screening mammogram for malignant neoplasm of breast I maging: MM Digital Screening Mammogram 3D * Follow Up: 1 Year (Reason: Yearly Senior Foreman Exam) * Images: Billing Information: * Visit Code: 98688 Preventive Care Est Pt. Age 40-64. 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 She has been in state of good health since her last exam. She has the following concerns: none* She was last seen on 10/05/24 for a follow up visit after starting Paroxetine for hot flashes, night sweats, emotional changes. 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 She was feeling well on Paroxetine and [...] ac neo distress, well developed, well nourished, parts washer present in room HEAD: normocephalic, atrau matic NECK/THYROID: neck supple, full ra nge of motion, thyroid normal ABDOMEN: soft, non-tender, no n distended without masses or hepatosplenomegay NEUROLOGIC: alert and oriented, gait normal SKIN: normal, good turgor, no rashes, no suspicious lesions BACK: no costovertebral an gle tenderness BREASTS: normal, no dimpling, no discharge, no drainage, no masses palpable bilaterally, nontender LYMPH NODES: no axillary or supra clavicular [...]
--- OUTSIDE RECORDS SUMMARY | 2025-02-06 10:30 | XMS_ITS ---
Author Organization [facility] Address [address] [place] [address] Care Team Providers Care Accredited Pharmacy Technician Name Role Phone SHILPI BRIAN N.P. Primary Care Provider Unav ailable AMANUEL HERRERA Unavailable [phone] REASON FOR VISIT Annual HEAD OF PRODUCT Physical Encounters Encounter Location Date Provider Diagnosis [facility] [address] [address] 02/06/2025 AMANUEL HERRERA Encounter for gynecological examination (general) (routine) without abnormal findings Z01.419 ; Encounter for screening mammogram for malignant neoplasm of breast Z12.31 and Encounter for screening for infections with a predominantly sexual mode of transmission Z11.3 Assessments Encounter Date Diagnosis (ICD Code) Assessment Notes Treatment Notes Treatment Clinical Notes Section Notes 02/06/2025 Encounter for gynecological examination (general) (routine) without [...] to keep colon screening up to date. 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 Subjective: * Chief Complaints: * 1 . Annual HEAD OF PRODUCT Physical. * HPI: C onstitutional: Ange rowe (Ely) is a 59yo with LMP 01/2021 who presents for her yearly stubber exam. She has been in state of fair health since her last exam. She was hospitalized w ith psychosis for 2 weeks, s uicidal ideation with a TSH of 0.01, starting on 11/28/24 (following ER visit on 11/26/24 - held in ER until bed found). Her thyroid medication dose was reduced. She has the following concerns: none* She was last seen on 10/05/24 for a follow up visit after starting Paroxetine for hot flashes, night sweats, emotional changes. 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 She was feeling well on Paroxetine and we continued the same dose. *Since then, per her request via a message on 11/23/24, she has tapered off Paroxetine, as she felt more anxious on it and felt it wasn't really helping the hot flashes. She had laparotomy on 11/15/24 with resection of 35cm of sigmoid, as well as appendectomy for diverticulitis, complicated by abscess surrounding the tube/ovary. She had a follow up ultrasound on 01/09/25 that showed the left adnexal abscess no longer present. Small unilocular hypoechoic cyst in right ovarycould represent resolving corpus luteum vs other solid ovarian lesion. She is to repeat u/s in 8-12 weeks for expected resolution. She has received the Moderna Covid-19 vaccine. [...] a colonoscopy. The last colonoscopy was in 2018, scheduled 03/19/25 for colonoscopy before colostomy reversal. The patient does *not exercise. She reports that she has had a hard time since the of her mother a couple of years ago. 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 [...] Denies A nxiety. * Medical History: * Surgical History: B reast Reduction , Tummy Tuck , Hand - Arthritis, carpal tunnel , laparotomy with resection of 35cm sigmoid, appendectomy (for diverticulitis) 11/15/24. * Hospitalization/Major Diagno stic Procedure: C hildbirth , See Surgical Hx , Diverticulitis 12/2022, colostomy 10/2024, Psych admission for jerry/hyperthyroidism 11/2024. 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 HEAD: n ormocephalic, atraumatic. 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 Age 40-64. * Procedure Codes: * Electronic signature of AMANUEL HERRERA MD on 08/02/2025 at 10:18 PM EST Sign off status: Pending * Provider: Christina HERRERA MD Date: 0 02/06/2025 Generated for Helen leon/Larry/Helgaitting on: 1 10/03/2024 10:18 PM EST History and Physical Notes * HPI (History of Present Illness) Category Sub-Category Detail Notes Category Not es Aleja Thomson (Ely) is a 59yo with LMP 01/2021 who presents for her yearly stubber exam. She has been in state of fair health since her last exam. She was hospitalized with psychosis for 2 weeks, suicidal ideation with a TSH of 0.01, starting on 11/28/24 (following ER visit on 11/26/24 - held in ER until bed found). Her thyroid medication dose was reduced. She has the following concerns: none* She was last seen on 10/05/24 for a follow up visit after starting Paroxetine for hot flashes, night sweats, emotional changes. 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 She was feeling well on Paroxetine and we continued the same dose. *Since then, per her request via a message on 11/23/24, she has tapered off Paroxetine, as she felt more anxious on it and felt it wasn't really helping the hot flashes. She had laparotomy on 11/15/24 with resection of 35cm of sigmoid, as well as appendectomy for diverticulitis, complicated by abscess surrounding the tube/ovary. She had a follow up ultrasound on 01/09/25 that showed the left adnexal abscess no longer present. Small unilocular hypoechoic cyst in right ovarycould represent resolving corpus luteum vs other solid ovarian lesion. She is to repeat u/s in 8-12 weeks for expected resolution. She has received the Moderna Covid-19 vaccine. [...] a colonoscopy. The last colonoscopy was in 2018, scheduled 03/19/25 for colonoscopy before colostomy reversal. The patient does *not exercise. She reports that she has had a hard time since the of her mother a couple of years ago. Examination Category Sub-Category Detail Notes Category Not es General Examination GENERAL APPEARANCE: in no ac [facility] 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
--- OUTSIDE RECORDS SUMMARY | 2025-04-13 05:30 | XMS_ITS ---
Author Organization [facility] Address [address] [address] Care Team Providers Care Liner Roll Changer Name Role Phone SHILPI BRIAN N.P. Primary Care Provider Unav ailable AMANUEL HERRERA Unavailable [phone] REASON FOR VISIT Annual EDGE FINISHER Physical Encounters Encounter Location Date Provider Diagnosis [facility] [address] [address] 04/13/2025 AMANUEL HERRERA Encounter for gynecological examination (general) (routine) without abnormal findings Z01.419 ; Encounter for screening mammogram for malignant neoplasm of breast Z12.31 and Encounter for screening for infections with a predominantly sexual mode of transmission Z11.3 Assessments Encounter Date Diagnosis (ICD Code) Assessment Notes Treatment Notes Treatment Clinical Notes Section Notes 04/13/2025 Encounter for gynecological examination (general) (routine) without [...] to keep colon screening up to date. 04/13/2025 Encounter for screening mammogram for malignant neoplasm of breast (ICD-10 - Z12.31) 04/13/2025 Encounter for screening for infections with a [...] Follow Up: 1 Year, Reason: Y early Veneer Clipper Helper Exam Provider Name:AMANUEL Arcos, 06/20/2026 08:40:00 AM, [address], [address], [place], [address], Progress Notes * ALIX DANGELODOB: [birth year] (60 yo F)Acc No.[id number]:04/13/2025 PROGRESS NOTES Patient: Ranjeet BRIDGETTALIX SALGADO Provider: Christina HERRERA MD :[id number] A ge:59 Y S ex:Female Date:04/13/2025 Address:[address] [place], [place] [id number] Pcp:SHILPI BRIAN N.P. Subjective: * Chief Complaints: * 1 . Annual EDGE FINISHER Physical. 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 She was feeling well on Paroxetine and [...] present. Small unilocular hypoechoic cyst in right ovary could represent resolving corpus luteum vs other solid ovarian lesion. *She is to repeat u/s in 8-12 weeks for expected resolution. On 01/31/25, she had the colostomy take down via laparatomy. On 02/05/[address] scan showed reproductive organs to be unremarkable. She has received the Moderna Covid-19 vaccine. [...] of breast cancer. Her last mammogram was *11/23/23. She does *not have a family history of colon cancer. She a has had a colonoscopy. The last colonoscopy was 01/2024. The patient does *not exercise. She reports that she has had a hard time since the of her mother a couple of years ago. * ROS: A nnual Veneer Clipper Helper Exam ROS: Bowel habit changes d enies. [...] no acute distress, well developed, well nourished, automotive service writer present in room. HEAD: n ormocephalic, atraumatic. [...] * Follow Up: 1 Year (Reason: Yearly Veneer Clipper Helper Exam) * Images: Billing Information: * Visit Code: 67590 Preventive Care Est Pt. Age 40-64. 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 She was feeling well on Paroxetine and [...] present. Small unilocular hypoechoic cyst in right ovary could represent resolving corpus luteum vs other solid ovarian lesion. *She is to repeat u/s in 8-12 weeks for expected resolution. On 01/31/25, she had the colostomy take down via laparatomy. On 02/05/[address] scan showed reproductive organs to be unremarkable. She has received the Moderna Covid-19 vaccine. [...] of breast cancer. Her last mammogram was *11/23/23. She does *not have a family history of colon cancer. She a has had a colonoscopy. The last colonoscopy was 01/2024. The patient does *not exercise. She reports that she has had a hard time since the of her mother a couple of years ago. Examination Category Sub-Category Detail Notes Category Not es General Examination GENERAL APPEARANCE: in no ac afognak distress, well developed, well nourished, automotive service writer present in room HEAD: normocephalic, atrau matic [...]
--- NOTE | 2025-08-02 14:51 | A.OFFPC_ITS ---
Vital Signs 08/02/25 14:52 Height 5 ft 8 in Weight 277 lb 2 oz BMI 42.1 BP 124/86 Blood Pressure Location Rt brachial Position Sitting Respiration 16 Pulse 90 Pulse Source Pulse Oximeter Temp 98.5 F Temp Source Oral Pulse Oximetry (%) 98 Oxygen Delivery Method Room Air Intake Visit Reasons: CPE LABS 1 WEEK BEFORE Intake Note: Physical. Had labs done at [facility] on Wednesday. Aircrewman Required: No Allergies No Known Allergies Allergy (Verified 08/02/25 14:54) Medication List - Last Reconciled 08/02/25 by Vilma Lubin, SCRIPT DEVELOPER- divalproex ER 500 mg PO BEDTIME levothyroxine 125 mcg PO DAILY trazodone 50 mg PO BEDTIME Tobacco use date assessed: 08/02/25 Dental Screening Dental Screen Date: 03/02/25 HPI HPI Comments History of Present Illness Details 60 y/o F with hypothyroid, DM2, OA of hi p, diverticulitis, HARRIS, MDD, hepatic steaotisis, gallstones, CAD, Obesity, Hx of abnormal pap, bipolar disorder, alcohol use disorder in remission s/p cervical bx 2020 , hartmans procedure 10/2024 d/t perf diverticulitis, elective colostomy reversal 01/31/2025, breast reduction, L hand surgery Social: works for [employer], 35 years Fhx: Mother 86 with DM, MD; Dad alive 91 CKD4, dementia; 5 siblings no cancer; 2 dtrs 1 son all alive well; 7 grandchildren Health Maintenance Zoster complete Tdap 2019 Flu 08/02/2025 Mammo 2024*- will cont to go to [facility] Pap ASCUS 09/2023, repeat 2024 Colon 2024 DEXA 2024 done* @ [facility] Specialists Gen Surg, [facility] Counselor/Prescriber [employer] OPtho wears glasses 2024 History of Present Illness The patient is a 60 year old female presenting with a complete physical exam. Obesity: - The patient reports that her weight is very high with a BMI of 42.1. - She notes significant weight fluctuati ons, not just 5 or 10 pounds, but large amounts. - The patient attributes her weight gain to getting off track with her diet plan after her mother and experiencing increased alcohol intake, which she has recently quit. - She has a history of using the [employer]avia diet plan, which involves eating small, protein-carb balanced meals six times a day, and she successfully lost a significant amount of weight with it in the past. - She states she is determined to restar t this plan after the holidays. Type 2 diabetes mellitus: - The patient has a history of prediabet es. - Recent labs from 07/31 show a glucose o f 107 mg/dL and a hemoglobin A1c of 6.6%, which now diagnoses her with type 2 diabetes. - The patient believes this is weight-in duced. Hypothyroidism: - The patient has a history of hypothyro idism and takes levothyroxine 125 mcg daily. - She reports taking it first thing in t he morning without ever missing a dose. - Recent labs showed an elevated TSH of 12.4 and a T4 of 0.8, which is noted to be higher than past elevated results. - The patient acknowledges that weight c hanges can affect her required dosage and has been on a higher dose in the past. - It is noted that the new medication, d ivalproex acid, may be interfering with her thyroid levels. Hyperlipidemia: - The patient reports her cholesterol is high, which she believes is self- inflicted. - Recent labs show total cholesterol of 280 mg/dL, triglycerides of 427 mg/dL, HDL of 42 mg/dL, and LDL of 157 mg/dL. Past Medical History - Hypothyroidism - Bipolar disorder, managed by an outsid e prescriber - Alcohol abuse, currently in remission - Prediabetes - Diverticulitis - Anxiety - Depression - Hepatitis C - Ketosis - Cholelithiasis (gallstones) - Coronary artery disease - Obesity, with a BMI of 42.1 Family History - Mother: at age 86 from a hear t attack after a fall; had diabetes, which was likely age and weight related. - Father: Alive at 91 with stage 4 kidne y disease and some dementia. - Siblings: Five older siblings, all in good health, with some history of hip replacements but no cancer. - Paternal family: Some history of heart issues; paternal grandfather in his 50s from a heart attack, and one uncle also had heart issues, but others lived into their 80s. - Maternal family: One aunt of emph ysema, but her other sisters lived into their 80s. - Children: Three children (two daughter s, one son) and seven grandchildren, all in good health. - Other: No significant family history o f cancer. Social History - Marital Status: for 35 years; her is in good health and is very supportive. - Employment: Works for an [employer]. - Residence: Lives in [place]. - Substance Use: Has a history of alcoho l abuse but recently quit drinking and reports it has not been difficult. - Nutrition/Diet: She is aware of a heal thy diet plan ([employer]) that has worked for her previously, which consists of small, frequent meals with a protein and carbohydrate balance. She intends to restart this plan after the holidays. - Stressors/Coping: She notes increased alcohol consumption after her mother's , leading to weight gain. She has a history of her weight fluctuating significantly. Currently happy but wishes to take control of her weight. Health Maintenance - The patient will receive an influenza vaccine today. - Records of her recent mammogram, bone density scan, and Pap smear will be requested from outside facilities. Review of Systems - Constitutional: Reports always feeling warm. - Ears: Reports right ear feels a little blocked; patient uses earplugs to sleep. - GI: Reports normal bowel and bladder f unction. - Musculoskeletal: Reports soreness in h er feet, which she attributes to her weight. Reports her right ankle is sore and feels tweaked. Reports pain in her right wrist, particularly with weight-bearing movements like pushing up from the ground. Physical Exam General: Well developed, well nourished, in no acute distress. Appears stated age. BMI is 42.1. Head: Normocephalic, atraumatic. Eyes: Pupils are equal, round and reactive to light and accommodation. Conjunctivae are clear. Scleras nonicteric bilat. Vision grossly normal. Ears: Right cerumen impaction cleared. TMs clear AU, EACS WNL. Nose: Patent, without discharge. Neck: No carotid bruit bilat. Supple, no adenopathy or thyromegaly. Breast: Edu on SBE. Lungs: Clear to auscultation bilaterally. No rales, rhonchi or wheeze noted. Good air flow in all nicholas. Heart: Regular rate and rhythm. No murmurs, click, rubs or gallops are noted. Abdomen: Bowel sounds present in all quadrants. The abdomen is soft, nontender, with no masses or organomegaly noted. No hernias are noted. : Deferred. Reviewed recommendations for routine [employer]. Pulses: Peripheral pulses are equal and palpable bilaterally. Extremities: No clubbing, cyanosis nor edema is noted. Neurologic: Gait and station normal. Cranial Nerves 2-12 intact. Motor strength grossly symmetrical and intact. No sensory loss. Balance normal. Skin: No rashes, ulcers, or lesions noted. Turgor is good. Skin color is good. Hair and nails are without abnormalities. Psych: Normal eye contact, affect and mood appropriate, and normal interactions. Patient is alert and appropriate to context. History of anxiety and depression, managed with trazodone and divalproic acid. Results - Labs (07/31): - Glucose: 107 mg/dL (high) - Comprehensive Metabolic Panel: Normal kidney and liver function. BUN 11, creatinine 0.66, GFR 102. - CBC: Normal. WBC 5.7, RBC 4.69, hemogl obin 14.1, hematocrit 41.7. No anemia. - Lipid Panel: Total cholesterol 280 mg/ dL (high), triglycerides 427 mg/dL (high), HDL 42 mg/dL, LDL 157 mg/dL (high). - Hemoglobin A1c: 6.6% (high) - Thyroid Panel: TSH 12.4 (high), T4 0.8 . - Iron profile, urine microalbumin/creat inine ratio, B12, and folate levels were all normal. - Imaging: - Mammogram: Normal results reported by the patient. 2024 - Bone Density Scan: Normal results repo rted by the patient. 2024 - Pap 2024 Medical Decision Making The patient is a 60-year-old female here for a complete physical exam with several chronic conditions to manage. Her recent lab work is notable for a new diagnosis of type 2 diabetes with an A1c of 6.6%, significant hyperlipidemia, and uncontrolled hypothyroidism with a TSH of 12.4. The hypothyroidism is the most pressing issue as it is likely contributing to her weight gain and hypercholesterolemia. Her levothyroxine dose will be increased by adding a 50 mcg tablet to her current 125 mcg dose, for a total of 175 mcg, with a plan to recheck her TSH in six weeks. The goal is to bring her TSH below 4. The recent addition of divalproex acid may be contributing to her elevated TSH. Regarding the hyperlipidemia and type 2 diabetes, we will defer pharmacologic treatment for now. The patient is highly motivated to make lifestyle changes, specifically restarting a diet plan that has proven successful for her in the past. We will wait until her thyroid function is stabilized before re-evaluating her lipids and A1c to get a more accurate picture of her baseline metabolic state. On physical exam, she has a complete cerumen impaction in the right ear, which will be irrigated today. She reports right wrist and ankle pain, which she attributes to her weight. These will be monitored. The patient is up-to-date with her health maintenance screenings, and reports will be requested from outside facilities. A follow-up is scheduled in six months to review progress. Plan 1. Hypothyroidism - The patient's TSH is significantly steve vated at 12.4, despite adherence to levothyroxine 125 mcg. - The dose will be increased by adding l evothyroxine 50 mcg, for a total daily dose of 175 mcg. - TSH levels will be rechecked in six we eks to assess response to the new dose, with a target TSH below 4. 2. Type 2 Diabetes Mellitus - New diagnosis based on an A1c of 6.6%. - Medical therapy will be deferred at th is time. - The patient will focus on lifestyle mo difications, including diet changes with her [employer] plan. - A1c will be rechecked in approximately 3 months after her thyroid levels have stabilized. 3. Hyperlipidemia - Labs show elevated total cholesterol ( 280 mg/dL), triglycerides (427 mg/dL), and LDL (157 mg/dL). - It is noted that the elevated choleste rol may be exacerbated by her hypothyroidism. - The plan is to hold off on starting ch olesterol medication and re-evaluate her lipid panel after her TSH is normalized and with lifestyle changes. 4. Obesity - The patient is motivated to lose weigh t and plans to restart the [employer] diet program after the holidays. - She declined a referral to a nutrition ist, feeling she already has the knowledge and a plan that works for her. - The contribution of her uncontrolled h ypothyroidism to weight gain was discussed. 5. Cerumen Impaction - The right ear canal is noted to be com pletely impacted with wax. - An ear irrigation will be performed in the office today to clear the impaction. Patient Instructions - Start taking an additional 50 mcg levo thyroxine tablet daily along with your current 125 mcg tablet. A prescription has been sent to your pharmacy. - In six weeks (around the end of ), please return to our office lab to have your thyroid (TSH) level rechecked. You do not need to fast for this test and no appointment is necessary. - Based on those lab results, we may nee d to adjust your thyroid medication dose again. - Your right ear is blocked with wax. We will flush it out for you today before you leave. - You will receive a flu shot today. - We will not start any new medications for your cholesterol or diabetes at this time. Focus on your lifestyle changes. We will recheck these labs about three months after your thyroid level is stable. - Continue with your plan for healthy ea ting and weight management. Remember that progress is more important than perfection. - Please schedule a follow-up appointmen t for six months from now at the front counter clerk. - If you have any questions or concerns before your next appointment, please send a message through the patient portal. Consent Patient was informed and verbally consented to the use of an ambient scribe for clinic note documentation during this visit. [facility] Medical History (Updated 08/02/25 @ 15:41 by ALEX Sanderson-VU) Recovering alcoholic Thyroid disorder Surgical History (Updated 08/02/25 @ 14:59 by Vilma Lubin SCRIPT DEVELOPER-) History of colostomy reversal (~01/2025) History of partial surgical removal of colon (~10/2024) Hx of breast reduction, elective (~2001) Family History (Updated 03/02/25 @ 11:54 by Janeth Ellis MA) Father HTN (hypertension) Substance abuse Mother Diabetes Social History (Updated 03/02/25 @ 11:55 by Janeth Ellis MA) Household Members: Spouse Both parents involved: No Caregiver staying overnight: No Housing: House Are you a primary patient care provider to a significant other at home: No Do you presently have visiting nurse or other home services: No 75 years or older and lives alone: No Alcohol intake: never Patient Tobacco Use Status: Never used Tobacco e-Cigarette/Vaping Use: Never Used Second Hand Smoke Exposure: No Current occupational status: employed 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 Cognitive needs: No Hearing needs: No Vision needs: No Questionnaire Thrive Questionnaire Date Thrive assessed: 01/23/25 I am a: Patient What is your living situation today?: I have a steady place to live Within the past 12 months, did the food you bought not last and you didn't have the money to get more?: Never true Within the past 12 months, did you worry whether your food would run out before you got money to buy more?: Never true Do you have trouble paying for medicines?: No Do you have trouble getting transportation to medical appointments?: No Do you have trouble paying your heating and electricity bill?: No Do you have trouble taking care of your child, family member or friend?: No Do you have trouble with day-to-day activities such as bathing, preparing meals, shopping, managing finances, etc.?: No Are you currently unemployed and looking for a job?: No Are you interested in more education?: No Please select the resources that you would like help with: None Currently or been in a relationship where the following occur: No concerns reported THRIVE Score: 0 AUDIT C Alcohol Use Questionnaire (AUDIT-C) 1. How often do you have a drink containing alcohol?: Never 3. How often do you have six or more drinks on one occasion?: Never Total Score: 0 HARRIS-7 AMB Questionnaire HARRIS-7 Date HARRIS - 7 assessed: 03/02/25 Source: Developed by Drs. Mart Valdes, Betzaida Miranda, Missael Yousif and colleagues, with an educational mirela from [employer] Physical exam (Primary Care) Vital Signs: Last Vital Signs Temp 98.5 F 08/02/25 14:52 Pulse 90 08/02/25 14:52 Resp 16 08/02/25 14:52 BP 124/86 08/02/25 14:52 Pulse Ox 98 08/02/25 14:52 Oxygen Delivery Method Room Air 08/02/25 14:52 BMI result Body Mass Index 42.1 Tobacco/Smoking Status: Tobacco use Status Tobacco use date assessed 03/02/25 08/02/25 14:52 Patient Tobacco Use Status Never used Tobacco 08/02/25 14:52 e-Cigarette/Vaping Use Never Used 08/02/25 14:52 Thrive Assessment: Date of Thrive Assessment Date Thrive assessed 01/23/25 08/02/25 14:52 Currently or been in a relationship where the following occur: No concerns reported Office Procedures Cerumen Removal From which ear canal was the cerumen removed: right Removal: irrigation Notes: patient tolerated procedure well, no complications and ear canal clear [id number] Irrigation/Lavage Coding Level of Care Code Est Pt Prev Care 40-64y(71010) Add On Preventative Visit Only Diagnoses Adult general medical exam Z00.00 History of colonoscopy Z98.890 Bipolar disorder in full remission, most recent episode unspecified type F31.70 Active/Remission status: in full remission Most recent bipolar episode type: unspecified type Alcohol abuse F10.10 Acquired hypothyroidism E03.9 Hypothyroidism type: acquired ROY (nonalcoholic steatohepatitis) K75.81 Diverticulitis of colon with perforation K57.20 ASCUS of cervix with negative high risk HPV R87.610 Menopause Z78.0 Laboratory exam ordered as part of routine general medical examination Z00.00 History of mammogram Z92.89 Obesity, morbid, BMI 40.0-49.9 E66.01 Influenza vaccination administered at current visit Z23 History of bone density study Z92.89 Type 2 diabetes mellitus without complication, without long-term current use of insulin E11.9 Diabetes mellitus senior living insulin use: without long term acute care registered nurse use Diabetes mellitus complication status: without complication Mixed hyperlipidemia E78.2 Hyperlipidemia type: mixed hyperlipidemia Impacted cerumen, right ear H61.21 CPT Codes Office Procedure - CPT: 00203-[id number] Irrigation/Lavage ([id number]) Assessment & Plan Assessment & Plan (1) Adult general medical exam: Onset Date: ~08/02/25 Code(s): Z00.00 - Encounter for general adult medical examination without abnormal findings Category: Medical (2) History of colonoscopy: Onset Date: ~01/2025 Code(s): Z98.890 - Other specified postprocedural states Category: Surgical (3) Bipolar disorder: Code(s): F31.9 - Bipolar disorder, unspecified Category: Medical Qualifiers: Active/Remission status: in full remission Most recent bipolar episode type: unspecified type Qualified Code(s): F31.70 - Bipolar disorder, currently in remission, most recent episode unspecified (4) Alcohol abuse: Comment: in early remission, 10/2024 hx of Section 12 Code(s): F10.10 - Alcohol abuse, uncomplicated Category: Social Hx (5) Hypothyroid: Code(s): E03.9 - Hypothyroidism, unspecified Category: Medical Qualifiers: Hypothyroidism type: acquired Qualified Code(s): E03.9 - Hypothyroidism, unspecified (6) ROY (nonalcoholic steatohepatitis): Code(s): K75.81 - Nonalcoholic steatohepatitis (ROY) Category: Medical (7) Diverticulitis of colon with perforation: Code(s): K57.20 - Diverticulitis of large intestine with perforation and abscess without bleeding Category: Medical (8) ASCUS of cervix with negative high risk HPV: Onset Date: ~09/2023 Comment: managed by [facility] Code(s): R87.610 - Atypical squamous cells of undetermined significance on cytologic smear of cervix (ASC-US) Category: Medical (9) Menopause: Code(s): Z78.0 - Asymptomatic menopausal state Category: Medical (10) Laboratory exam ordered as part of routine general medical examination: Code(s): Z00.00 - Encounter for general adult medical examination without abnormal findings Category: Medical (11) History of mammogram: Onset Date: ~2024 Code(s): Z92.89 - Personal history of other medical treatment Category: Medical (12) Obesity, morbid, BMI 40.0-49.9: Code(s): E66.01 - Morbid (severe) obesity due to excess calories Category: Medical (13) Influenza vaccination administered at current visit: Onset Date: ~08/02/25 Code(s): Z23 - Encounter for immunization Category: Medical (14) History of bone density study: Onset Date: ~2024 Code(s): Z92.89 - Personal history of other medical treatment Category: Medical (15) DM2 (diabetes mellitus, type 2): Onset Date: ~07/2025 Code(s): E11.9 - Type 2 diabetes mellitus without complications Category: Medical Qualifiers: Diabetes mellitus senior living insulin use: without long term acute care registered nurse use Diabetes mellitus complication status: without complication Qualified Code(s): E11.9 - Type 2 diabetes mellitus without complications (16) HLD (hyperlipidemia): Code(s): E78.5 - Hyperlipidemia, unspecified Category: Medical Qualifiers: Hyperlipidemia type: mixed hyperlipidemia Qualified Code(s): E78.2 - Mixed hyperlipidemia (17) Impacted cerumen, right ear: Code(s): H61.21 - Impacted cerumen, right ear Plan . Orders: Orders TSH reflex Free T4 6 Weeks E03.9 - Hypothyroidism, unspecified Lipid Panel 6 Months E03.9 - Hypothyroidism, unspecified, E11.9 - Type 2 diabetes mellitus without complications, E78.5 - Hyperlipidemia, unspecified Hemoglobin A1c 6 Months E03.9 - Hypothyroidism, unspecified, E11.9 - Type 2 diabetes mellitus without complications, E78.5 - Hyperlipidemia, unspecified TSH reflex Free T4 6 Months E03.9 - Hypothyroidism, unspecified, E11.9 - Type 2 diabetes mellitus without complications, E78.5 - Hyperlipidemia, unspecified Medications: New levothyroxine (Levoxyl) 50 mcg PO DAILY 90 tabs 0RF levothyroxine 125 mcg PO DAILY 90 tabs 0RF Patient Instructions: Health screenings for women You should visit your health care provider from time to time, even if you are healthy. The purpose of these visits is to: Screen for medical issues Assess your risk for future medical problems Encourage a healthy lifestyle Update vaccinations and other preventive care services Help you get to know your provider in case of an illness Information Even if you feel fine, you should still see your provider for regular checkups. These visits can help you avoid problems in the future. For example, the only way to find out if you have high blood pressure is to have it checked regularly. High blood sugar and high cholesterol levels also may not have any symptoms in the early stages. A simple blood test can check for these conditions. There are specific times when you should see your provider or receive specific health screenings. The [place] Preventive Services Task Force publishes a list of recommended screenings. Below are screening guidelines for women ages 18 to 39. BLOOD PRESSURE SCREENING Your blood pressure should be checked at least once every 3 to 5 years if: Your blood pressure is in the normal range (top number less than 120 mm Hg and bottom number less than 80 mm Hg) You don't have risk factors for high blood pressure Ask your provider if you need your blood pressure checked more often if: The top number is 120 to 129 mm Hg or the bottom number is 70 to 79 mm Hg You have diabetes, heart disease, kidney problems, are overweight, or have certain other health conditions You have a first-degree relative with high blood pressure You are Black You had high blood pressure during a If the top number is 130 mm Hg or greater or the bottom number is 80 mm Hg or greater, this is considered stage 1 hypertension. Schedule an appointment with your provider to learn how you can reduce your blood pressure. Watch for blood pressure screenings in your area. Ask your provider if you can stop in to have your blood pressure checked. BREAST CANCER SCREENING Experts do not agree about the benefits of breast self-exams in finding breast cancer or saving lives. Talk to your provider about what is best for you. A screening mammogram is not recommended for most women under age 40. Your provider may discuss and recommend mammograms, MRI scans, or ultrasounds if you have an increased risk for breast cancer, such as: A mother or sister who had breast cancer at a young age (most often starting screening earlier than the age the close relative was diagnosed) You carry a high-risk genetic marker CERVICAL CANCER SCREENING Cervical cancer screening should start at age 21 years unless your provider advises otherwise. After the first test: Women ages 21 through 29 should have a Pap test every 3 years. Exoprts do not agree on whether HPV testing is recommended for this age group. Women ages 30 through 65 should be screened with either a Pap test every 3 years or the HPV test every 5 years or both tests every 5 years (called cotesting ). Women who have been treated for precancer (cervical dysplasia) should continue to have Pap tests for 20 years after treatment or until age 65, whichever is longer. If you have had your uterus and cervix removed (total hysterectomy), and you have not been diagnosed with cervical cancer or precancer (high grade cervical neoplasia), you do not need cervical cancer screening. CHOLESTEROL SCREENING Cholesterol screening should begin at: Age 45 for women with no known risk factors for coronary heart disease Age 20 for women with known risk factors for coronary heart disease Repeat cholesterol screening should take place: Every 5 years for women with normal cholesterol levels More often if changes occur in lifestyle (including weight gain and diet) More often if you have diabetes, heart disease, kidney problems, or certain other conditions DIABETES SCREENING You should be screened for diabetes starting at age 35 and then repeated every 3 years if you have no risk factors for diabetes. Screening may need to start earlier and be repeated more often if you have other risk factors for diabetes, such as: You have a first degree relative with diabetes. You are overweight or have obesity. You have high blood pressure, prediabetes, or a history of heart disease. Screening for diabetes should be done if you are planning to become and you are overweight and have other risk factors such as high blood pressure. DENTAL EXAM Go to the dentist once or twice every year for an exam and cleaning. Your dentist will evaluate if you need more frequent visits. EYE EXAM Have an eye exam every 5 to 10 years before age 40. If you have vision problems, have an eye exam every 2 years or more often if recommended by your provider. You should have an eye exam that includes an examination of your retina (back of your eye) at least every year if you have diabetes. IMMUNIZATIONS Commonly needed vaccines include: Flu shot: get one every year. COVID-19 vaccine: ask your provider what is best for you. Tetanus-diphtheria and acellular pertussis (Tdap) vaccine: have one at or after age 19 as one of your tetanus-diphtheria vaccines if you did not receive it as an adolescent. Tetanus-diphtheria: have a booster (or Tdap) every 10 years. Varicella vaccine: receive 2 doses if you never had chickenpox or the varicella vaccine. Hepatitis B vaccine: receive 2, 3, or 4 doses, depending on your exact circumstances. Measles, mumps, and rubella (MMR) vaccine: receive 1 to 2 doses if you are not already immune to MMR. Your provider can tell you if you are immune. Ask your provider about the human papillomavirus (HPV) vaccine if: You have not received the HPV vaccine in the past You have not completed the full vaccine series (you should catch up on this shot) Ask your provider if you should receive other immunizations if you have certain health problems that increase your risk for some diseases such as pneumonia. INFECTIOUS DISEASE SCREENING Women who are sexually active should be screened for chlamydia and gonorrhea up until age 25. Women 25 years and older should be screened for chlamydia and gonorrhea if at high risk. Screening for hepatitis C: All adults ages 18 to 79 should get a one-time test for hepatitis C. people should be screened at every . Screening for human immunodeficiency virus (HIV): All people ages 15 to 65 should get a one-time test for HIV. Depending on your lifestyle and medical history, you may also need to be screened for infections such as syphilis and HIV, as well as other infections. PHYSICAL EXAM All adults should visit their provider from time to time, even if they are healthy. The purpose of these visits is to: Screen for disease Assess your risk of future medical problems Encourage a healthy lifestyle Update your vaccinations and other preventive care services Maintain a relationship with a provider in case of an illness Your height, weight, and BMI should be checked at every exam. During your exam, your provider may ask you about: Depression and anxiety Diet and exercise Alcohol and tobacco use Safety issues, such as using seat belts, smoke detectors, and intimate partner violence Your medicines and risk for interactions SKIN SELF-EXAM Your provider may check your skin for signs of skin cancer, especially if you're at high risk, such as if you: Have had skin cancer before Have close relatives with skin cancer Have a weakened immune system OTHER SCREENING Talk with your provider about colon cancer screening if you have a strong family history of colon cancer or polyps, or if you have had inflammatory bowel disease or polyps yourself. Routine bone density screening of women under 40 is not recommended.
[2025-08-02 14:52] VITALS: BP 124/86; PULSE 90; RESP 16; TEMP 36.9; O2SAT 98; BMI 42.1
--- OUTSIDE RECORDS SUMMARY | 2025-08-02 22:18 | XMS_ITS | Patient Health Record ---
Author Organization [facility] Address [address] [place] [address] Care Team Providers Care Geriatric Nurse Name Role Phone SHILPI BRIAN N.P. Primary Care Provider Unav ailable AMANUEL HERRERA Unavailable [phone] Allergies No Known Allergies Results Component Value Reference Range Notes [id number] IGP No Culture 30 Plus Reviewed date:06/15/2025 01:15:08 PM Interpretation: Performing Lab:[facility], [address], [address], [place], Phone - [phone], Director - [facility] Notes/Report: Clinical Information:VAG/CERV [id number] Dates / Results....10/21/23 Other..............Post Menopausal No. of containers..01 ThinPrep Vial DIAGNOSIS: NEGATIVE FOR IN TRAEPITHELIAL LESION OR MALIGNANCY. Specimen adequacy: Satisfactory for evaluation. Endocervical and/or squamous metaplastic cells (endocervical component) are present. Clinician provided ICD10: Z01.419 Z11.51 Performed by: Kobi talbot, Hand Tile Maker (ASCP) . . Note: The Pap smear is a screening test designed to aid in the detection of premalignant and malignant conditions of the uterine cervix. It is not a diagnostic procedure and should not be used as the sole means of detecting cervical cancer. Both false-positive and false-negative reports do occur. . Test Methodology: This liquid based ThinPrep(R) pap test was screened with the use of an image guided system. HPV Aptima Negative Negative This nucleic acid amplification test detects fourteen high-risk HPV types (16,18,31,33,35,39,45,51,52,56,5 8,59,66,68) without differentiation. HPV Genotype Reflex Criteria not met, HPV Genotype not performed. PDF Report Reviewed date:06/15/2025 01:14:50 PM Interpretation: Performing Lab:[facility], [address], [address], [place], Phone - [phone], Director - [facility] Notes/Report: Clinical Information:VAG/CERV [id number] Dates / Results....10/21/23 Other..............Post Menopausal No. of containers..01 ThinPrep Vial Reason For Referral No Information Medications Medication SIG (Take, Route, Frequency, Duration) Notes Start Date End Date Status Levothyroxine Sodium 125 MCG 1 tablet in the morning on an empty stomach Orally Once a day Active Divalproex Sodium 500 MG as directed Orally Active traZODone HCl 50 MG 1 tablet at bedtime as needed Orally Once a day Active Social History Tobacco Use: Social History Observation Description Date Details (start date - stop date) Former Smoker NA - NA Sexual History Question Answer Notes Had sex in the past 12 months (vaginal, oral, or anal)? Yes with Men only Prevention strategies discussed: Other AUDIT-C (Standard) Question Answer Notes Did you have a drink containing alcohol in the p ast year? No Points 0 Interpretation Negative Tobacco Control (Standard) Question Answer Notes Tobacco use: Former smoker How long has it been since you last smoked? Grea ter than 10 years Problems Problem Type SNOMED Code ICD Code Onset Dates Problem Status W/U Status Risk Notes Problem Menopause (728761407) Menopausal and female climacteric states (N95.1) Active confirmed Problem Hypothyroidism (40829797) Hypothyroidism, unspecified (E03.9) Active confirmed Problem Mild recurrent major depression (50528356) Major depressive disorder, recurrent, mild (F33.0) Active confirmed Problem Anxiety disorder (566124923) Anxiety disorder, unspecified (F41.9) Active confirmed Problem COVID-19 (954110399) COVID-19 (U07.1) Active confirmed Vital Signs Temperature 98.0 degrees Fahrenheit 06/12/2025 Blood pressure diastolic 76 mm Hg 06/12/2025 Height 69.0 in 06/12/2025 Blood pressure systolic 128 mm Hg 06/12/2025 Weight 259 lbs 06/12/2025 BMI 38.24 kg/m2 06/12/2025 Encounters Encounter Location Date Provider Diagnosis Total [address] [address] 08/03/2024 AMANUEL HERRERA Menopausal and femal e climacteric states N95.[address] [address] 10/05/2024 AMANUEL HERRERA Menopausal and femal e climacteric states N95.[address] [address] 06/12/2025 AMANUEL HERRERA Encounter for gynecological examination (general) (routine) without abnormal findings Z01.419 ; Encounter for screening mammogram for malignant neoplasm of breast Z12.31 and Encounter for screening for human papillomavirus (HPV) Z11.[address] [address] 11/23/2024 AMANUEL HERRERA Assessments Encounter Date Diagnosis (ICD Code) Assessment Notes Treatment Notes Treatment Clinical Notes Section Notes 08/03/2024 Menopausal and female climacteric states (ICD-10 - N95.1) Discussed options for management of menopausal symptoms - some methods work better than others. Some methods help some women, and don't help other women. Discussed that symptoms are a normal part of aging, and that she doesn't have to treat the symptoms unless they are bothersome. Some options include: Accupuncture - [place] Accupuncture Over the counter meds - Remifemin, Estroven - both contain black cohosh, one also contains soy Antidepressants - some are known to help reduce the frequency and intensity of hot flashes/night sweats: Prozac, Paxil and Effexor. They also would treat her emotional lability. We did discuss the common side effect of inability to reach orgasm. Hormone therapy - Post-menopausal hormone therapy counselling: She was counseled at length on the use of hormone replacement. Her medical history was reviewed with her. She does not have an estrogen dependent cancer, liver disease or history of VTE. I discussed the Women's Health Study, regarding the increased risk of breast cancer, heart disease, and DVT. These risks appeared to be increased after the fifth year of use, except for heart disease that may occur in the first year in women at risk. The benefits of HT I reviewed as well. I have advised her, that it is reasonable for her to be on HT for five years with minimal increased risk over baseline, at which time we may elect to wean her slowly so that we can get her off without too many withdrawal symptoms. She understands the above mentioned risks, and she would NOT like to use hormone replacement therapy in order to alleviate her unpleasant menopausal symptoms. Some women find that exercise and dressing in layers, using a fan, avoiding triggers like alcohol and hot beverages can be sufficient at symptomatic relief. I encouraged her to find a therapist, who can help with her increased stress. Psychology Today website information provided. She is most interested in starting an antidepressant, as the risks of hormone use are more than she'd like. She also understands that hormones would not treat the emotional lability. She is advised to take 1/2 tab daily for the first week then increase to the full dose. Will follow up in 2 months. If she is feeling great, she can cancel that appointment and follow up at her routine yearly exam, currently scheduled for 10/26/24. 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 06/12/2025 Encounter for gynecological examination (general) (routine) without [...] to keep colon screening up to date. 06/12/2025 Encounter for screening mammogram for malignant neoplasm of breast (ICD-10 - Z12.31) 06/12/2025 Encounter for screening for human papillomavirus (HPV) (ICD-10 - Z11.51) 08/03/2024 Other 35 minutes were spent on the day of the visit reviewing and prepping the chart, obtaining the HPI, examining the patient, counseling the patient on the diagnosis, ordering/refilling medications, ordering tests and procedures and documenting this encounter. Plan Of Treatment Pending Test Test Name Order Date Test, Urine 06/19/2021 ULTRASOUND: PELVIC W/TRANSVAGINAL 2022 MM Digital Screening Mammogram 3D 2023 MM Digital Screening Mammogram 3D 2024 MM Digital Screening Mammogram 3D 2022 MM Digital Screening Mammogram 3D 2020 Next Appt Details Provider Name:AMANUEL HERNANDEZ Josselyn, 06/20/2026 08:40:00 AM, [address], [address], [place], [address], Insurance Providers Payer Name Payer Address Payer Phone Subscriber Number Group Number Insured Name Patient Relationship to Insured Coverage Start Date Coverage End Date [employer] [address] [place] [address] [phone] [id number] ROYCE DANGELO Self - patient is the insured Medical (General) History Medical History History ICD Code Hypothyroidism, unspecified E03.9 Anxiety disorder, unspecified F41.9 Major depressive disorder, recurrent, mi ld F33.0 COVID-19 U07.1 Atypical squamous cells of u ndetermined significance on cytologic smear of cervix (ASC-US) R87.610 Atypical squamous cells estefania ot exclude high grade squamous intraepithelial lesion on cytologic smear of cervix (ASC-H) R87.611 Menopausal and female climacteric states N95.1 Other ovarian cyst, right side N83.291 Hormone replacement therapy Z79.890 Surgical History Surgery Date(Month/Year) Breast Reduction Tummy Tuck Hand - Arthritis, carpal tunnel laparotomy with resection of 35cm sigmoid, appendectomy (for diverticulitis) 11/15/24 Hospitalization History Reason Date(Month/Year) Childbirth Psych admission for jerry/hyperthyroidis m 11/2024 colostomy 10/2024 Diverticulitis 12/2022 See Surgical Hx
--- OUTSIDE RECORDS SUMMARY | 2025-08-02 22:18 | XMS_ITS | Clinical Summary ---
Author Organization [facility] Address [address] [place] [address] Care Team Providers Care Campaign Specialist Name Role Phone Luan Sargent Jacklyn Primary Care Provider [phone] Allergies No known active allergies Medications levothyroxine [...] treated with Levothyroxine 200mcg daily. While at [facility], endocrinology was consulted and the Levothyroxine was held for 3 days due to concern for iatrogenic hyperthyroid. After the 3 days, they recommended restarting Levothyroxine at 150mg daily with monitoring of labs in 4-6 weeks. Repeat TSH remained low; auditor medical claims recommended further decrease of Levothyroxine to 125mcg [...] on admission. Ostomy teaching was done at [facility]; patient reports ability to change the bag independently but given the extent of manic symptoms may need assistance. -Medical Consult to evaluate incision site and ostomy -11/29/24 Doxycycline 100mg BID x7 days restarted -11/29/24 Flagyl 500mg Q8hr x7 days restarted -Monitor incision site 3 times a day by nursing staff -Staple Removal scheduled on 12/07 @ 1:20pm with Dr. Morejon ([phone]); -After pictures were sent to the surgeon on 11/30 the new instructions were to remove ginny on 12/01 and replace with steri strips (auditor medical claims will remove) -Check CBC, CMP, CRP, ESR [...] lunch and will be seen by the auditor medical claims later today. -11/29 started on Triamcinolone dental [...] 11/28/2024 3:00 PM EDT Plan of Treatment Health Maintenance Due Date Last Done Comments Cervical Cancer Screening 1967 Cologuard 1967 Colon Cancer Screening 1967 Colonoscopy 1967 FOBT / Fit Test 1967 HIV Screening 1967 HPV and Pap Smear 1967 Pap Smear 1967 Sigmoidoscopy 1967 Hepatitis B Vaccines (1 of 3 - 19+ 3-dose series) [address] Lung Cancer Screening (Baseline) 2017 Pneumococcal Vaccine: 50+ Ye ars (1 of 1 - PCV) 2017 Alcohol/Substance Use Screening 08/23/2024 Influenza Vaccine (#1) 2025 , 06/25/2020, 05/26/2019 COVID-19 Vaccine (3 - 2024-2 6 season) 2025 01/19/2021, 12/17/2020 Diabetes Screening 12/09/2027 12/08/2024, 0 12/08/2024, 12/08/2024, Additional history exists DTaP,Tdap,and Td Vaccines (3 - Td or Tdap) 06/25/2030 06/25/2020, 05/26/2019 Zoster Vaccines Completed 11/30/2020, 09/01/2020 Procedures * Due to [place] [employer] law, this organization might not be sharing negative HIV tests. Procedure Name Priority Date/Time Associated Diagnosis Comments BASIC METABOLIC PANEL Routine 12/08/2024 6:45 AM EDT from Last 3 Months or Most Recently Relevant to Health Maintenance Results * Due to [place] state law, this organization might not be sharing negative HIV tests. * (ABNORMAL) Basic metabolic panel (12/08/2024 6:45 AM EDT) NA 138 136 - 145 mmol/L 12/08/2024 7:17 AM EDT [facility] K 4.2 3.5 - 5.1 mmol/L 12/08/2024 7:17 AM EDT [facility] Cl 100 98 - 109 mmol/L 12/08/2024 7:17 AM EDT [facility] CO2 28 22 - 32 mmol/L 12/08/2024 7:17 AM EDT [facility] BUN 8 6 - 20 mg/dL 12/08/2024 7:17 AM EDT [facility] Creatinine 0.41(L) 0.50 - 1.12 mg/dL 12/08/2024 7:17 AM EDT [facility] Glucose 114(H) 60 - 99 mg/dL 12/08/2024 7:17 AM EDT [facility] Calcium 8.8 8.4 - 10.4 mg/dL 12/08/2024 7:17 AM EDT [facility] Anion Gap 14 >=0 12/08/2024 7:17 AM T [facility] eGFR >90 >=60 mL/min/1. 73m2 12/08/2024 7:17 AM EDT [facility] Comment:The estimated glomer ular filtration rate (eGFR) is calculated using a new formula developed by the NKF-ASN task force to eliminate race-based correction factors. The new formula uses serum/plasma creatinine, age, and gender to determine eGFR. A value below 60mls/min might indicate kidney disease and will be flagged. For additional information, see uJlianne et al, Am J Kidney Dis. 2021;79(2):268- 288, A Unifying Approach for GFR estimation: Recommendations of the NKF-ASN Task Force on Reassessing the Inclusion of Race in Diagnosing Kidney Disease . Blood Structure of peripheral vein / Unknown Venipuncture / Unknown 12/08/2024 6:45 AM EDT 12/08/2024 6:48 AM EDT Tabitha Lundy [employer] REPRESENTATIVE LAB BLOOD ORDERABLES Final Re sult [facility] [address] [place] [address], from Last 3 Months or Most Recently Relevant to Health Maintenance Insurance [facility] HMO/POS Advance Directives * Full Code (Latest Code Status on File) Date Activated Date Inactivated Comments 11/28/2024 3:32 PM 12/08/2024 3:51 PM Care Teams Campaign Specialist Relationship Specialty Start Date End Date Luan Sargent [address] [place] [id number] PCP - General Internal Medicine 12/01/24
== END 2025-08-02 15:53 | disposition home or self-care (01) ==
LOC: HO.HMCFM 14:47
PROVIDERS: PCP Nurse Practitioner Family; Visit Provider Nurse Practitioner Family
DX: Z00.00 Encounter for general adult medical examination without abnormal findings (principal); E11.9 Type 2 diabetes mellitus without complications; E66.01 Morbid (severe) obesity due to excess calories; Z68.41 Body mass index [BMI] 40.0-44.9, adult; H61.21 Impacted cerumen, right ear; F31.70 Bipolar disorder, currently in remission, most recent episode unspecified; E03.9 Hypothyroidism, unspecified; K75.81 Nonalcoholic steatohepatitis (NASH); K57.20 Diverticulitis of large intestine with perforation and abscess without bleeding; E78.2 Mixed hyperlipidemia; R87.610 Atypical squamous cells of undetermined significance on cytologic smear of cervix (ASC-US); F10.10 Alcohol abuse, uncomplicated; Z23 Encounter for immunization; Z78.0 Asymptomatic menopausal state

== ENCOUNTER → 2025-08-02 14:46 | Outpatient (BNVA) | payer BC, SELFPAY | PROVIDERS: PCP Nurse Practitioner Family; Visit Provider Nurse Practitioner Family | DX: Z00.00 Encounter for general adult medical examination without abnormal findings (principal); Z23 Encounter for immunization; H61.21 Impacted cerumen, right ear; F31.70 Bipolar disorder, currently in remission, most recent episode unspecified; F10.10 Alcohol abuse, uncomplicated; E03.9 Hypothyroidism, unspecified; K75.81 Nonalcoholic steatohepatitis (NASH); K57.20 Diverticulitis of large intestine with perforation and abscess without bleeding; R87.610 Atypical squamous cells of undetermined significance on cytologic smear of cervix (ASC-US); E66.01 Morbid (severe) obesity due to excess calories; E11.9 Type 2 diabetes mellitus without complications; E78.2 Mixed hyperlipidemia; Z78.0 Asymptomatic menopausal state; Z92.89 Personal history of other medical treatment; Z98.890 Other specified postprocedural states; Z68.41 Body mass index [BMI] 40.0-44.9, adult | CPT/HCPCS: 69209; 90471; 90656 ==